=== PATIENT | female | born 1975 | race Two or more races ===

== ENCOUNTER 2022-01-08 21:38 | Emergency (ER) | payer MEDICAID, OTHER ==
[~2022-01-08] VITALS: Ht 152.4 cm; Wt 62.2 kg
--- NOTE | 2022-01-08 22:16 | NUR ---
CALLED FOR PT IN LOBBY AND OUTSIDE FOR TRIAGE. NO ANSWER.
--- NOTE | 2022-01-08 22:17 | NUR ---
CALLED NUMBER ON CHART, WRONG NUMBER PER PERSON WHO ANSWERED PHONE.
[2022-01-08 22:33] VITALS: BP 137/83
--- NOTE | 2022-01-08 22:39 | NUR ---
PT TO LOBBY FOLLOWING TRIAGE
--- NOTE | 2022-01-09 01:28 | NUR ---
PT TO BED 12.
[2022-01-09] MEDS ORDERED: HYDROcodone/APAP 5/325 MG 1 TAB TAB PO ONE (01:40)
[2022-01-09] MEDS ORDERED: CEPH-588 PO (02:40)
[2022-01-09] MEDS ORDERED: NAPR-54 PO (02:40)
[2022-01-09] MEDS ORDERED: ACET-8386 PO (02:40)
[2022-01-09 02:58] VITALS: BP 135/80
--- NOTE | 2022-01-09 02:58 | NUR ---
Patient discharged with v/s stable. Written and verbal after care instructions given and explained. Patient alert, oriented and verbalized understanding of instructions. Ambulatory with steady gait. All questions addressed prior to discharge. ID band removed. Patient advised to follow up with PMD. Rx of HYDROCODONE, ACETAMINOPHEN, KEFLEX, AND NAPROXEN given.
== END 2022-01-09 02:58 | disposition home or self-care (01) ==
LOC: MED 21:38
DX: S83.92XA Sprain of unspecified site of left knee, initial encounter (principal); Z88.8 Allergy status to other drugs, medicaments and biological substances; W18.30XA Fall on same level, unspecified, initial encounter; Y93.89 Activity, other specified; Y92.89 Other specified places as the place of occurrence of the external cause; Y99.8 Other external cause status
CPT/HCPCS: 29505; 73502; 73562; 99284